=== PATIENT | male | born 1960 | race Caucasian/White ===

== ENCOUNTER 2018-12-30 20:54 | Emergency (ER) | payer OTHER ==
[~2018-12-30] VITALS: Ht 165.1 cm; Wt 113.4 kg
--- NOTE | 2018-12-30 21:04 | ED.ADGEN ---
Past History Past Medical History: A-Fib, Hypertension Adult General Chief Complaint Chief Complaint ..".. My afib. is kicking up...they took away my Cardizem 120 because I did not take it every day... and now I am getting Afib..... and dyspnea... when it gets to going really fast... I ve had it 10 yrs.. 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 Hx. Afib x 10yrs. The patient recently has been off his Cardizem because he was taking it only intermittently and [facility] did not renew this med. Patient does have history of mild hypertension. Patient does not smoke. No history of previous [place]. Patient has been compliant with his anti coagulants Eliquis. Patient denies any chest pain. No specific ill contacts. No immunosuppression. Review of Systems Review of Systems Constitutional: Denies fever or chills [] Eyes: Denies change in visual acuity, redness, or eye pain [] HENT: Denies nasal congestion or sore throat [] Respiratory: History of shortness of breath when he becomes tachycardic Cardiovascular: No additional information not addressed in HPI [] GI: Denies abdominal pain, nausea, vomiting, bloody stools or diarrhea [] : Denies dysuria or hematuria [] Musculoskeletal: Denies back pain or joint pain [] Integument: Denies rash or skin lesions [] Neurologic: Denies headache, focal weakness or sensory changes [] Endocrine: Denies polyuria or polydipsia [] All other systems were reviewed and found to be within normal limits, except as documented in this note. Family History Family History Noncontributory Current Medications Current Medications Current Medications Medications (Trade) Dose Ordered Sig/Otf Start Time Stop Time Status Last Admin Dose Admin Aspirin (Bubba Aspirin) 325 mg 1X ONCE 12/30/18 22:00 12/30/18 22:02 DC 12/30/18 21:16 325 MG Diltiazem HCl (Cardizem 24hr Cd) 120 mg 1X ONCE 12/30/18 22:00 12/30/18 22:02 DC 12/30/18 22:15 120 MG Lactated Ringer's 1,000 ml @ 100 mls/hr Q10H 12/30/18 21:30 12/31/18 03:49 DC 12/30/18 21:16 100 MLS/HR Allergies Allergies Allergies Coded Allergies Type Severity Reaction Last Updated Verified doxycycline Allergy Severe 12/30/18 Yes Physical Exam Physical Exam Constitutional: no acute distress, non-toxic appearance. [] HENT: Normocephalic, atraumatic, bilateral external ears normal, oropharynx moist, no oral exudates, nose normal. [] Eyes: PERRLA, EOMI, conjunctiva normal, no discharge. [] Neck: Normal range of motion, no tenderness, supple, no stridor. [] Cardiovascular: Tachycardia irregular rate and rhythm , no murmur [] Lungs & Thorax: Bilateral breath sounds with apex on auscultation [] Abdomen: Bowel sounds normal, soft, no tenderness, no masses, no pulsatile masses. Obese. Skin: Warm, dry, no erythema, no rash. [] Back: No tenderness, no CVA tenderness. [] Extremities: No tenderness, no cyanosis, no clubbing, ROM intact, no edema. [] No cording appreciated Neurologic: Alert and oriented X 3, normal motor function, normal sensory function, no focal deficits noted. [] Psychologic: Affect anxious, judgement normal, mood normal. [] Current Patient Data Vital Signs Vital Signs Date Time Temp Pulse Resp B/P (MAP) Pulse Ox O2 Delivery O2 Flow Rate FiO2 12/30/18 22:45 88 20 144/63 (90) 95 Room Air 12/30/18 21:05 98.4 Lab Results Laboratory Tests Test 12/30/18 21:09 White Blood Count 9.0 x10^3/uL (4.0-11.0) Red Blood Count 5.09 x10^6/uL (4.30-5.70) Hemoglobin 15.2 g/dL (13.0-17.5) Hematocrit 45.4 % (39.0-53.0) Mean Corpuscular Volume 89 fL (79-100) Mean Corpuscular Hemoglobin 30 pg (25-35) Mean Corpuscular Hemoglobin Concent 34 g/dL (31-37) Red Cell Distribution Width 12.8 % (11.5-14.5) Platelet Count 299 x10^3/uL (140-400) Neutrophils (%) (Auto) 57 % (31-73) Lymphocytes (%) (Auto) 31 % (24-48) Monocytes (%) (Auto) 7 % (0-9) Eosinophils (%) (Auto) 4 % (0-3) H Basophils (%) (Auto) 1 % (0-3) Neutrophils # (Auto) 5.1 x10^3uL (1.8-7.7) Lymphocytes # (Auto) 2.8 x10^3/uL (1.0-4.8) Monocytes # (Auto) 0.7 x10^3/uL (0.0-1.1) Eosinophils # (Auto) 0.4 x10^3/uL (0.0-0.7) Basophils # (Auto) 0.1 x10^3/uL (0.0-0.2) Prothrombin Time 10.0 SEC (9.4-11.4) Prothrombin Time INR 1.0 (0.9-1.1) PTT 28 SEC (23-33) D-Dimer (Estelle) 0.30 mg/L (0.00-0.50) Urine Collection Type Unknown Urine Color Straw Urine Clarity Clear Urine pH 7.0 Urine Specific [place] 1.010 Urine Protein Neg (NEG-TRACE) Urine Glucose (UA) Neg mg/dL (NEG) Urine Ketones (Stick) Neg mg/dL (NEG) Urine Blood Neg (NEG) Urine Nitrite Neg (NEG) Urine Bilirubin Neg (NEG) Urine Urobilinogen Dipstick 0.2 mg/dL (0.2 mg/dL) Urine Leukocyte Esterase Neg (NEG) Urine RBC 0 /HPF (0-2) Urine WBC 0 /HPF (0-4) Urine Squamous Epithelial Cells Occ /LPF Urine Bacteria 0 /HPF (0-FEW) Sodium Level 141 mmol/L (136-145) Potassium Level 3.8 mmol/L (3.5-5.1) Chloride Level 101 mmol/L (98-107) Carbon Dioxide Level 29 mmol/L (21-32) Anion Gap 11 (6-14) Blood Urea Nitrogen 19 mg/dL (8-26) Creatinine 0.8 mg/dL (0.7-1.3) Estimated GFR (Cockcroft-Gault) 99.6 Glucose Level 95 mg/dL (70-99) Calcium Level 8.6 mg/dL (8.5-10.1) Magnesium Level 1.9 mg/dL (1.8-2.4) Total Bilirubin 0.3 mg/dL (0.2-1.0) Direct Bilirubin 0.1 mg/dL (0.0-0.2) Aspartate Amino Transferase (AST) 20 U/L (15-37) Alanine Aminotransferase (ALT) 29 U/L (16-63) Alkaline Phosphatase 60 U/L (46-116) Creatine Kinase 127 U/L (39-308) Troponin I Quantitative < 0.017 ng/mL (0-0.055) HH-Ykn-H-Type Natriuretic Peptide 104 pg/mL (0-124) Total Protein 7.9 g/dL (6.4-8.2) Albumin 3.6 g/dL (3.4-5.0) Lipase 210 U/L (73-393) Urine Opiates Screen Neg (NEG) Urine Methadone Screen Neg (NEG) Urine Barbiturates Neg (NEG) Urine Phencyclidine Screen Neg (NEG) Urine Amphetamine/Methamphetamine Neg (NEG) Urine Benzodiazepines Screen Neg (NEG) Urine Cocaine Screen Neg (NEG) Urine Cannabinoids Screen Neg (NEG) Urine Ethyl Alcohol Neg (NEG) EKG EKG My interpretation of EKG shows A. fib with ventricular rate of 102. No findings acute STEMI with contralateral changes.[] Radiology/Procedures Radiology/Procedures 920 chest x-ray shows no acute cardiopulmonary findings.[] Course & Med Decision Making Course & Med Decision Making Pertinent Labs and Imaging studies reviewed. (See chart for details) Patient to resume his Cardizem 120 CD at night daily. Patient to continue his Eliquis 5 mg twice a day. Patient return if any concerns. Must follow-up primary care. Patient's ventricular response after receiving Cardizem and fluids in the emergency department had slowed to the 70 range patient without symptoms. Patient requesting discharge. Patient declined further evaluation at time of discharge. Note there is a computer -printer pharmacy air will not allow prescription for 120 Cardizem change mainly on Rx. from 180 to 120. Pharmacy notified of computer problems. [] Final Impression Final Impression 1. Afib- with rapid Ventricular Response 2. HTN Dragon Disclaimer Dragon Disclaimer This electronic medical record was generated, in whole or in part, using a voice recognition dictation system. Dragon Disclaimer This chart was dictated in whole or in part using Voice Recognition software in a busy, high-work load, and often noisy Emergency Department environment. It may contain unintended and wholly unrecognized errors or omissions. Discharge Summary Visit Information Final Diagnosis Problems Medical Problems: (1) Afib Status: Acute (2) Hypertension Status: Acute Brief Hospital Course Allergies Allergies Coded Allergies Type Severity Reaction Last Updated Verified doxycycline Allergy Severe 12/30/18 Yes Vital Signs Vital Signs Date Time Temp Pulse Resp B/P (MAP) Pulse Ox O2 Delivery O2 Flow Rate FiO2 12/30/18 22:45 88 20 144/63 (90) 95 Room Air 12/30/18 21:05 98.4 Lab Results Laboratory Tests Test 12/30/18 21:09 White Blood Count 9.0 x10^3/uL (4.0-11.0) Red Blood Count 5.09 x10^6/uL (4.30-5.70) Hemoglobin 15.2 g/dL (13.0-17.5) Hematocrit 45.4 % (39.0-53.0) Mean Corpuscular Volume 89 fL (79-100) Mean Corpuscular Hemoglobin 30 pg (25-35) Mean Corpuscular Hemoglobin Concent 34 g/dL (31-37) Red Cell Distribution Width 12.8 % (11.5-14.5) Platelet Count 299 x10^3/uL (140-400) Neutrophils (%) (Auto) 57 % (31-73) Lymphocytes (%) (Auto) 31 % (24-48) Monocytes (%) (Auto) 7 % (0-9) Eosinophils (%) (Auto) 4 % (0-3) Basophils (%) (Auto) 1 % (0-3) Neutrophils # (Auto) 5.1 x10^3uL (1.8-7.7) Lymphocytes # (Auto) 2.8 x10^3/uL (1.0-4.8) Monocytes # (Auto) 0.7 x10^3/uL (0.0-1.1) Eosinophils # (Auto) 0.4 x10^3/uL (0.0-0.7) Basophils # (Auto) 0.1 x10^3/uL (0.0-0.2) Prothrombin Time 10.0 SEC (9.4-11.4) Prothromb Time International Ratio 1.0 (0.9-1.1) Activated Partial Thromboplast Time 28 SEC (23-33) D-Dimer (Estelle) 0.30 mg/L (0.00-0.50) Urine Collection Type Unknown Urine Color Straw Urine Clarity Clear Urine pH 7.0 Urine Specific [place] 1.010 Urine Protein Neg (NEG-TRACE) Urine Glucose (UA) Neg mg/dL (NEG) Urine Ketones (Stick) Neg mg/dL (NEG) Urine Blood Neg (NEG) Urine Nitrite Neg (NEG) Urine Bilirubin Neg (NEG) Urine Urobilinogen Dipstick 0.2 mg/dL (0.2 mg/dL) Urine Leukocyte Esterase Neg (NEG) Urine RBC 0 /HPF (0-2) Urine WBC 0 /HPF (0-4) Urine Squamous Epithelial Cells Occ /LPF Urine Bacteria 0 /HPF (0-FEW) Sodium Level 141 mmol/L (136-145) Potassium Level 3.8 mmol/L (3.5-5.1) Chloride Level 101 mmol/L (98-107) Carbon Dioxide Level 29 mmol/L (21-32) Anion Gap 11 (6-14) Blood Urea Nitrogen 19 mg/dL (8-26) Creatinine 0.8 mg/dL (0.7-1.3) Estimated GFR (Cockcroft-Gault) 99.6 Glucose Level 95 mg/dL (70-99) Calcium Level 8.6 mg/dL (8.5-10.1) Magnesium Level 1.9 mg/dL (1.8-2.4) Total Bilirubin 0.3 mg/dL (0.2-1.0) Direct Bilirubin 0.1 mg/dL (0.0-0.2) Aspartate Amino Transf (AST/SGOT) 20 U/L (15-37) Alanine Aminotransferase (ALT/SGPT) 29 U/L (16-63) Alkaline Phosphatase 60 U/L (46-116) Creatine Kinase 127 U/L (39-308) Troponin I Quantitative < 0.017 ng/mL (0-0.055) YW-Wkp-M-Type Natriuretic Peptide 104 pg/mL (0-124) Total Protein 7.9 g/dL (6.4-8.2) Albumin 3.6 g/dL (3.4-5.0) Lipase 210 U/L (73-393) Urine Opiates Screen Neg (NEG) Urine Methadone Screen Neg (NEG) Urine Barbiturates Neg (NEG) Urine Phencyclidine Screen Neg (NEG) Urine Amphetamine/Methamphetamine Neg (NEG) Urine Benzodiazepines Screen Neg (NEG) Urine Cocaine Screen Neg (NEG) Urine Cannabinoids Screen Neg (NEG) Urine Ethyl Alcohol Neg (NEG) Brief Hospital Course Mr. Abreu is a 58 old male who presented with chronic Afib x 10 yrs. Requesting refill of Cardizem 120-CD. Discharge Information Condition at Discharge: Improved, Stable Disposition/Orders: D/C to Home Dischare Medications Current Medications Aspirin (Bubba Aspirin) 325 mg 1X ONCE PO Last administered on 12/30/18at 21:16 ; Admin Dose 325 MG; Start 12/30/18 at 22:00; Stop 12/30/18 at 22:02; Status DC Lactated Ringer's 1,000 ml @ 100 mls/hr Q10H IV Last administered on 12/30/18at 21:16; Admin Dose 100 MLS/HR; Start 12/30/18 at 21:30; Stop 12/31/18 at 03:49; Status DC Diltiazem HCl (Cardizem 24hr Cd) 120 mg 1X ONCE PO Last administered on at 22:15; Admin Dose 120 MG; Start 12/30/18 at 22:00; Stop 12/30/18 at 22:02; Status DC Active Scripts Active Eliquis (Apixaban) 5 Mg Tablet 5 Mg PO BID 90 Days Cardizem Cd (Diltiazem Hcl) 180 Mg Cap.er.24h 1 Cap PO DAILY Discharge Summary Visit Information Final Diagnosis Problems Medical Problems: (1) Afib Status: Acute (2) Hypertension Status: Acute Brief Hospital Course Allergies Allergies Coded Allergies Type Severity Reaction Last Updated Verified doxycycline Allergy Severe 12/30/18 Yes Vital Signs Vital Signs Date Time Temp Pulse Resp B/P (MAP) Pulse Ox O2 Delivery O2 Flow Rate FiO2 12/30/18 22:45 88 20 144/63 (90) 95 Room Air 12/30/18 21:05 98.4 Lab Results Laboratory Tests Test 12/30/18 21:09 White Blood Count 9.0 x10^3/uL (4.0-11.0) Red Blood Count 5.09 x10^6/uL (4.30-5.70) Hemoglobin 15.2 g/dL (13.0-17.5) Hematocrit 45.4 % (39.0-53.0) Mean Corpuscular Volume 89 fL (79-100) Mean Corpuscular Hemoglobin 30 pg (25-35) Mean Corpuscular Hemoglobin Concent 34 g/dL (31-37) Red Cell Distribution Width 12.8 % (11.5-14.5) Platelet Count 299 x10^3/uL (140-400) Neutrophils (%) (Auto) 57 % (31-73) Lymphocytes (%) (Auto) 31 % (24-48) Monocytes (%) (Auto) 7 % (0-9) Eosinophils (%) (Auto) 4 % (0-3) Basophils (%) (Auto) 1 % (0-3) Neutrophils # (Auto) 5.1 x10^3uL (1.8-7.7) Lymphocytes # (Auto) 2.8 x10^3/uL (1.0-4.8) Monocytes # (Auto) 0.7 x10^3/uL (0.0-1.1) Eosinophils # (Auto) 0.4 x10^3/uL (0.0-0.7) Basophils # (Auto) 0.1 x10^3/uL (0.0-0.2) Prothrombin Time 10.0 SEC (9.4-11.4) Prothromb Time International Ratio 1.0 (0.9-1.1) Activated Partial Thromboplast Time 28 SEC (23-33) D-Dimer (Estelle) 0.30 mg/L (0.00-0.50) Urine Collection Type Unknown Urine Color Straw Urine Clarity Clear Urine pH 7.0 Urine Specific [place] 1.010 Urine Protein Neg (NEG-TRACE) Urine Glucose (UA) Neg mg/dL (NEG) Urine Ketones (Stick) Neg mg/dL (NEG) Urine Blood Neg (NEG) Urine Nitrite Neg (NEG) Urine Bilirubin Neg (NEG) Urine Urobilinogen Dipstick 0.2 mg/dL (0.2 mg/dL) Urine Leukocyte Esterase Neg (NEG) Urine RBC 0 /HPF (0-2) Urine WBC 0 /HPF (0-4) Urine Squamous Epithelial Cells Occ /LPF Urine Bacteria 0 /HPF (0-FEW) Sodium Level 141 mmol/L (136-145) Potassium Level 3.8 mmol/L (3.5-5.1) Chloride Level 101 mmol/L (98-107) Carbon Dioxide Level 29 mmol/L (21-32) Anion Gap 11 (6-14) Blood Urea Nitrogen 19 mg/dL (8-26) Creatinine 0.8 mg/dL (0.7-1.3) Estimated GFR (Cockcroft-Gault) 99.6 Glucose Level 95 mg/dL (70-99) Calcium Level 8.6 mg/dL (8.5-10.1) Magnesium Level 1.9 mg/dL (1.8-2.4) Total Bilirubin 0.3 mg/dL (0.2-1.0) Direct Bilirubin 0.1 mg/dL (0.0-0.2) Aspartate Amino Transf (AST/SGOT) 20 U/L (15-37) Alanine Aminotransferase (ALT/SGPT) 29 U/L (16-63) Alkaline Phosphatase 60 U/L (46-116) Creatine Kinase 127 U/L (39-308) Troponin I Quantitative < 0.017 ng/mL (0-0.055) XJ-Liq-P-Type Natriuretic Peptide 104 pg/mL (0-124) Total Protein 7.9 g/dL (6.4-8.2) Albumin 3.6 g/dL (3.4-5.0) Lipase 210 U/L (73-393) Urine Opiates Screen Neg (NEG) Urine Methadone Screen Neg (NEG) Urine Barbiturates Neg (NEG) Urine Phencyclidine Screen Neg (NEG) Urine Amphetamine/Methamphetamine Neg (NEG) Urine Benzodiazepines Screen Neg (NEG) Urine Cocaine Screen Neg (NEG) Urine Cannabinoids Screen Neg (NEG) Urine Ethyl Alcohol Neg (NEG) Brief Hospital Course Mr. Abreu is a 58 old [sex] who presented with [ ] Discharge Information Dischare Medications Current Medications Aspirin (Bubba Aspirin) 325 mg 1X ONCE PO Last administered on 12/30/18at 21:16 ; Admin Dose 325 MG; Start 12/30/18 at 22:00; Stop 12/30/18 at 22:02; Status DC Lactated Ringer's 1,000 ml @ 100 mls/hr Q10H IV Last administered on 12/30/18at 21:16; Admin Dose 100 MLS/HR; Start 12/30/18 at 21:30; Stop 12/31/18 at 03:49; Status DC Diltiazem HCl (Cardizem 24hr Cd) 120 mg 1X ONCE PO Last administered on at 22:15; Admin Dose 120 MG; Start 12/30/18 at 22:00; Stop 12/30/18 at 22:02; Status DC Active Scripts Active Eliquis (Apixaban) 5 Mg Tablet 5 Mg PO BID 90 Days Cardizem Cd (Diltiazem Hcl) 180 Mg Cap.er.24h 1 Cap PO DAILY IRAM LEAVITT MD Dec 30, 2018 21:04
[2018-12-30] MEDS ORDERED: IV RINGERS SOLUTION,LACTATED 1,000 ML IV SCH (21:30)
[2018-12-30 21:38] LABS: BASO # 0.1 x10^3/uL (0.0-0.2); BASO % 1 % (0-3); EOS # 0.4 x10^3/uL (0.0-0.7); EOS % 4 % (0-3); HEMATOCRIT 45.4 % (39.0-53.0); HEMOGLOBIN 15.2 g/dL (13.0-17.5); LYMPH # 2.8 x10^3/uL (1.0-4.8); LYMPH % 31 % (24-48); MEAN CORPUSCULAR HEMOGLOBIN 30 pg (25-35); MEAN CORPUSCULAR HGB CONC 34 g/dL (31-37); MEAN CORPUSCULAR VOLUME 89 fL (79-100); MONO # 0.7 x10^3/uL (0.0-1.1); MONO % 7 % (0-9); NEUT # 5.1 x10^3uL (1.8-7.7); NEUT % 57 % (31-73); PLATELET COUNT 299 x10^3/uL (140-400); RED BLOOD COUNT 5.09 x10^6/uL (4.30-5.70); RED CELL DISTRIBUTION WIDTH 12.8 % (11.5-14.5)
[2018-12-30 21:41] LABS: BARBITURATES NEG (NEG); BENZODIAZEPINES NEG (NEG); CANNABINOIDS NEG (NEG); COCAINE NEG (NEG); METHADONE NEG (NEG); OPIATES NEG (NEG); PHENCYCLIDINE NEG (NEG)
[2018-12-30 21:42] LABS: AMPHETAMINE/METHAMPHETAMINE NEG (NEG)
[2018-12-30] MEDS ORDERED: APIX5TAB3 PO (21:42)
[2018-12-30] MEDS ORDERED: DILT180C2 PO (21:42)
[2018-12-30 21:43] LABS: BACTERIA,URINE 0 /HPF (0-FEW); BILIRUBIN,URINE NEG (NEG); CLARITY,URINE CLEAR; COLOR,URINE STRAW; GLUCOSE,URINE NEG (NEG); NITRITE,URINE NEG (NEG); RBC,URINE 0 /HPF (0-2); SQUAMOUS EPITHELIAL CELL,UR OCC /LPF; UROBILINOGEN,URINE 0.2 mg/dL (0.2 mg/dL); WBC,URINE 0 /HPF (0-4)
[2018-12-30 21:55] LABS: ALBUMIN 3.6 g/dL (3.4-5.0); CALCIUM 8.6 mg/dL (8.5-10.1); CREATININE 0.8 mg/dL (0.7-1.3); DIRECT BILIRUBIN 0.1 mg/dL (0.0-0.2); GFR 99.6; MAGNESIUM 1.9 mg/dL (1.8-2.4); POTASSIUM 3.8 mmol/L (3.5-5.1); TOTAL BILIRUBIN 0.3 mg/dL (0.2-1.0); TOTAL PROTEIN 7.9 g/dL (6.4-8.2)
[2018-12-30] MEDS ORDERED: ASPIRIN 325 MG TABLET PO ONE (22:00)
--- NOTE | 2018-12-30 22:02 | RAD ---
CHEST PA LATERAL Technique: PA and lateral views of the chest were obtained. Clinical History: Chest pain, irregular sanders beat. Hx AFIB Comparison: None. Findings: The heart and pulmonary vasculature appear within normal limits. The lungs are clear. The pleural margins are clear. Impression: No acute chest process is seen. Electronically signed by: Geovani Butcher III, MD (12/30/2018 9:58 PM) [facility]
[2018-12-30 22:45] VITALS: BP 144/63
--- NOTE | 2018-12-31 06:12 | EKG ---
[address] [address] Test Date: 2018-12-30 Test Time: 21:06:22 Pat Name: SHAHEED WALKER Department: Room: Gender: M [place] Farmer: [id number] : 1960 Requested By: IRAM LEAVITT Order Number: [id number] Reading MD: Alfredo Jones Measurements Intervals [place] Rate: 102 P: [place]: QRS: 21 QRSD: 86 T: 34 QT: 354 QTc: 466 Interpretive Statements ATRIAL FIBRILLATION. 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
[2018-12-31 13:07] LABS: THYROID STIM HORMONE (TSH) 3.236 uIU/mL (0.358-3.740)
== END 2018-12-30 22:58 | disposition home or self-care (01) ==
LOC: ER 20:54
DX: I48.2 Chronic atrial fibrillation (principal); I10 Essential (primary) hypertension; Z88.1 Allergy status to other antibiotic agents
CPT/HCPCS: 36415; 71046; 80048; 80061; 80076; 80307; 81001; 82550; 83690; 83735; 83880; 84443; 84484; 85025; 85379; 85610; 85730; 93005; 99284; J7120

== ENCOUNTER 2019-02-05 18:34 | Inpatient (IN) | payer OTHER ==
[~2019-02-05] VITALS: Ht 167.6 cm; Wt 118.8 kg
[~2019-02-05 18:34] MED LIST: APIX5TAB3 PO; DILT180C2 PO
--- NOTE | 2019-02-05 18:58 | PHYS DOC ---
Past History Past Medical History: A-Fib, Hypertension Past Surgical History: No Surgical History Alcohol Use: None Drug Use: None Adult General Chief Complaint Chief Complaint: CHEST PAIN HPI HPI Patient is a 58-year-old male who presents with complaint of palpitations started about an hour ago. He states that since that time he has also had some chest discomfort that he describes as pressure. He states that currently symptoms are very mild but he states that they do get worse when he gets up and moves around. He denies any shortness of breath. He denies any nausea, vomiting or diaphoresis. Patient states that he does have a history of chronic A. fib and is on Eliquis for it. Review of Systems Review of Systems Constitutional: Denies fever or chills [] Cardiovascular: No additional information not addressed in HPI [] GI: Denies abdominal pain, nausea, vomiting, bloody stools or diarrhea [] Integument: Denies rash or skin lesions [] Neurologic: Denies headache, focal weakness or sensory changes [] All other systems were reviewed and found to be within normal limits, except as documented in this note. Current Medications Current Medications Current Medications Medications (Trade) Dose Ordered Sig/Otf Start Time Stop Time Status Last Admin Dose Admin Diltiazem HCl (Cardizem Iv Push) 20 mg 1X ONCE 02/05/19 19:00 02/05/19 19:01 Sodium Chloride 1,000 ml @ 1,000 mls/hr Q1H 02/05/19 19:00 02/05/19 19:59 Allergies Allergies Allergies Coded Allergies Type Severity Reaction Last Updated Verified doxycycline Allergy Severe 12/30/18 Yes Physical Exam Physical Exam Constitutional: Well developed, well nourished, no acute distress, non-toxic appearance. [] HENT: Normocephalic, atraumatic, bilateral external ears normal, oropharynx moist, no oral exudates, nose normal. [] Eyes: PERRLA, EOMI, conjunctiva normal, no discharge. [] Neck: Normal range of motion, no tenderness, supple, no stridor. [] Cardiovascular: Markedly tachycardic rate with irregular rhythm [] Lungs & Thorax: Bilateral breath sounds clear to auscultation [] Abdomen: Bowel sounds normal, soft, no tenderness. [] Skin: Warm, dry, no erythema, no rash. [] Extremities: No tenderness, no cyanosis, no clubbing, ROM intact, no edema. [] Neurologic: Alert and oriented X 3, no focal deficits noted. [] Current Patient Data Vital Signs Vital Signs Date Time Temp Pulse Resp B/P (MAP) Pulse Ox O2 Delivery O2 Flow Rate FiO2 02/05/19 18:47 98.2 133 18 95 Room Air EKG EKG EKG demonstrates atrial fibrillation with rapid ventricular response and rate of 130.[] Radiology/Procedures Radiology/Procedures [] Impressions: Chest x-ray demonstrates no acute process. Course & Med Decision Making Course & Med Decision Making Pertinent Labs and Imaging studies reviewed. (See chart for details) [] Dragon Disclaimer Dragon Disclaimer This electronic medical record was generated, in whole or in part, using a voice recognition dictation system. Departure Departure: Impression: Primary Impression: Atrial fibrillation with RVR Additional Impression: Chest pain Disposition: ADMITTED INPATIENT Admitting Physician: Anna Hernandez Condition: IMPROVED Referrals: PCP,NO (PCP) Problem Qualifiers Additional Impression: Chest pain Chest pain type: unspecified Qualified Codes: R07.9 - Chest pain, unspecified DAVE CROFT Jr. DO Feb 05, 2019 18:58
[2019-02-05] MEDS ORDERED: dilTIAZem 25 MG/5 ML VIAL IVP ONE (19:00)
[2019-02-05] MEDS ORDERED: IV NORMAL SALINE 1,000ML 1,000 ML IV SCH (19:00)
[2019-02-05 19:25] LABS: BASO # 0.1 x10^3/uL (0.0-0.2); BASO % 1 % (0-3); EOS # 0.4 x10^3/uL (0.0-0.7); EOS % 4 % (0-3); HEMATOCRIT 44.4 % (39.0-53.0); HEMOGLOBIN 15.2 g/dL (13.0-17.5); LYMPH # 2.3 x10^3/uL (1.0-4.8); LYMPH % 25 % (24-48); MEAN CORPUSCULAR HEMOGLOBIN 31 pg (25-35); MEAN CORPUSCULAR HGB CONC 34 g/dL (31-37); MEAN CORPUSCULAR VOLUME 89 fL (79-100); MONO # 0.8 x10^3/uL (0.0-1.1); MONO % 9 % (0-9); NEUT # 5.5 x10^3uL (1.8-7.7); NEUT % 61 % (31-73); PLATELET COUNT 288 x10^3/uL (140-400); RED BLOOD COUNT 4.97 x10^6/uL (4.30-5.70); RED CELL DISTRIBUTION WIDTH 13.1 % (11.5-14.5)
[2019-02-05 19:42] LABS: ALBUMIN 3.5 g/dL (3.4-5.0); ALBUMIN/GLOBULIN RATIO 0.9 (1.0-1.7); CALCIUM 8.7 mg/dL (8.5-10.1); MAGNESIUM 2.1 mg/dL (1.8-2.4); POTASSIUM 3.7 mmol/L (3.5-5.1); TOTAL BILIRUBIN 0.3 mg/dL (0.2-1.0); TOTAL PROTEIN 7.6 g/dL (6.4-8.2)
[2019-02-05] MEDS ORDERED: NITROGLYCERIN SUBLINGUAL 0.4 MG BOTTLE OF 25. SL PRN (20:45)
[2019-02-05] MEDS: dilTIAZem VIAL 125 MG in IV DEXTROSE 5% 100 ML IV PRN (21:47)
[2019-02-05 23:38] VITALS: BP 102/73
[2019-02-05 23:54] VITALS: BP 104/63
[2019-02-06] VITALS (34 sets, daily range): BP systolic 82–150; BP diastolic 55–102
[2019-02-06] MEDS ORDERED: DRON400T PO (02:09)
[2019-02-06] MEDS ORDERED: METO50TA6 PO (02:19)
[2019-02-06] MEDS ORDERED: MAGN400T30 PO (02:19)
[2019-02-06] MEDS ORDERED: ATOR10TA60 PO (02:19)
[2019-02-06] MEDS: dilTIAZem VIAL 125 MG in IV DEXTROSE 5% 100 ML IV PRN (06:30)
--- NOTE | 2019-02-06 06:38 | RAD ---
PROCEDURE: PORTABLE CHEST 1V CLINICAL INDICATION: afib COMPARISON: None FINDINGS: No pneumothorax identified. Cardiac and mediastinal contours unremarkable. No pulmonary consolidation or acute airspace disease. No acute osseous abnormalities identified. IMPRESSION: No pulmonary consolidation or acute airspace disease. Electronically signed by: Luiz Richmond DO (02/06/2019 6:35 AM) [facility]
--- NOTE | 2019-02-06 09:55 | PDOC2 ---
LEONILA DOTY PHYSICAL THERAPIST CLINIC DIRECTOR 02/06/19 0955: CONSULT Date of Admission DATE: 02/06/19 TIME: 09:25 Reason for Consult: dyspnea, chest pain Problem List Problems Medical Problems: (1) Atrial fibrillation with RVR Status: Acute (2) Chest pain Status: Acute History of Present Illness Mr Abreu is a 58 year old male who was recently released from Jail and residing in the [facility]. He reports a history of atrial fibrillation, hypertension and hyperlipidemia. Yesterday he reports he was upset after arguing with his girlfriend and then was sent some upsetting social media. He had a sudden onset of rapid heart rate with associated chest pressure. He denies lightheadedness or dyspnea exceeding his baseline due to COPD. He then sought ED evaluation. He reports that his atrial fibrillation is normally fairly well controlled with breakthrough only once or twice per year. He does state that over the last few months this has occurred more often than usual. He denies other episodes of chest discomfort. He reports chronic dyspnea due to his COPD but denies any recent exacerbations. He denies congestive symptoms, lightheadedness, presyncope or syncope. He denies functional limitations. Cardiovascular: AFIB, HTN, hyperipidemia Pulmonary: COPD, Other (OAS) GI: GERD Renal/: Other (urinary retention, prob BPH by history) Past Surgical History no surgeries Family History father - onset in his 50s, CAD, HTN, alcoholism Social History prior history of methamphetamine use, last in 2011, prior smoking last in 2011, no significant ETOH, resides in [facility]. Current Medications Current Medications Diltiazem HCl (Cardizem Iv Push) 20 mg 1X ONCE IVP Last administered on at 19:01; Start 02/05/19 at 19:00; Stop 02/05/19 at 19:01; Status DC Sodium Chloride 1,000 ml @ 1,000 mls/hr Q1H IV Last administered on 02/05/19at 19:01; Start 02/05/19 at 19:00; Stop 02/05/19 at 19:59; Status DC Nitroglycerin (Nitrostat) 0.4 mg PRN Q5MIN PRN SL CHEST PAIN; Start 02/05/19 at 20:45; Stop 02/06/19 at 20:44 Diltiazem HCl 125 mg/Dextrose 125 ml @ 5 mls/hr CONT PRN IV SEE I/O RECORD Last administered on 02/05/19at 21:47; Start 02/05/19 at 21:15 Active Scripts Active Eliquis (Apixaban) 5 Mg Tablet 5 Mg PO BID 90 Days Cardizem Cd (Diltiazem Hcl) 180 Mg Cap.er.24h 1 Cap PO DAILY Reported Atorvastatin Calcium 10 Mg Tablet 1 Tab PO DAILY Magnesium (Magnesium Oxide) 400 Mg Tablet 200 Mg PO BID Metoprolol Tartrate 50 Mg Tablet 1 Tab PO BID Multaq (Dronedarone Hcl) 400 Mg Tablet 200 Mg PO BID Allergies: Coded Allergies: doxycycline (Verified Allergy, Severe, 02/06/19) Pt states "my skin breaks out into red itchy patches - not hives." Review of System as per HPI General: Alert, Oriented X3, Cooperative, No acute distress HEENT: Atraumatic, EOMI, Mucous membr. moist/pink Lungs: Clear to auscultation, Normal air movement Heart: Other (IRR, no gallops, clicks or rubs, no obvious murmurs) Abdomen: Normal bowel sounds, Soft, No tenderness, Other (obese) Extremities: No cyanosis, No edema, Normal pulses Neuro: Normal speech, Strength at 5/5 X4 ext Psych/Mental Status: Mental status NL, Mood NL VITALS Vital Signs Date Time Temp Pulse Resp B/P (MAP) Pulse Ox O2 Delivery O2 Flow Rate FiO2 02/06/19 08:00 Room Air 02/06/19 07:42 98.3 02/06/19 06:13 116/66 (83) 02/06/19 05:37 77 13 97 1.0 Labs Laboratory Tests Test 02/05/19 18:56 02/05/19 23:30 02/06/19 02:40 White Blood Count 9.0 x10^3/uL (4.0-11.0) Red Blood Count 4.97 x10^6/uL (4.30-5.70) Hemoglobin 15.2 g/dL (13.0-17.5) Hematocrit 44.4 % (39.0-53.0) Mean Corpuscular Volume 89 fL (79-100) Mean Corpuscular Hemoglobin 31 pg (25-35) Mean Corpuscular Hemoglobin Concent 34 g/dL (31-37) Red Cell Distribution Width 13.1 % (11.5-14.5) Platelet Count 288 x10^3/uL (140-400) Neutrophils (%) (Auto) 61 % (31-73) Lymphocytes (%) (Auto) 25 % (24-48) Monocytes (%) (Auto) 9 % (0-9) Eosinophils (%) (Auto) 4 % (0-3) Basophils (%) (Auto) 1 % (0-3) Neutrophils # (Auto) 5.5 x10^3uL (1.8-7.7) Lymphocytes # (Auto) 2.3 x10^3/uL (1.0-4.8) Monocytes # (Auto) 0.8 x10^3/uL (0.0-1.1) Eosinophils # (Auto) 0.4 x10^3/uL (0.0-0.7) Basophils # (Auto) 0.1 x10^3/uL (0.0-0.2) Sodium Level 141 mmol/L (136-145) Potassium Level 3.7 mmol/L (3.5-5.1) Chloride Level 103 mmol/L (98-107) Carbon Dioxide Level 29 mmol/L (21-32) Anion Gap 9 (6-14) Blood Urea Nitrogen 18 mg/dL (8-26) Creatinine 1.0 mg/dL (0.7-1.3) Estimated GFR (Cockcroft-Gault) 77.0 BUN/Creatinine Ratio 18 (6-20) Glucose Level 121 mg/dL (70-99) Calcium Level 8.7 mg/dL (8.5-10.1) Magnesium Level 2.1 mg/dL (1.8-2.4) Total Bilirubin 0.3 mg/dL (0.2-1.0) Aspartate Amino Transf (AST/SGOT) 21 U/L (15-37) Alanine Aminotransferase (ALT/SGPT) 23 U/L (16-63) Alkaline Phosphatase 64 U/L (46-116) Troponin I Quantitative < 0.017 ng/mL (0-0.055) < 0.017 ng/mL (0-0.055) < 0.017 ng/mL (0-0.055) JE-Kve-N-Type Natriuretic Peptide 136 pg/mL (0-124) Total Protein 7.6 g/dL (6.4-8.2) Albumin 3.5 g/dL (3.4-5.0) Albumin/Globulin Ratio 0.9 (1.0-1.7) Images CXR - IMPRESSION: No pulmonary consolidation or acute airspace disease. Assessment/Plan 1. atrial fibrillation with RVR - rate controlled at rest on cardizem drip, remains tachycardic with minimal exertion. add digoxin and resume multaq, apixaban, and rate control Rx as bp tolerates. 2. Chest pain - mi ruled out. check echo, check lipids, resume rate control and antiarrhythmics. outpatient stress test. 3. hypertension - currently mildly hypotensive with cardizem drip. Resume home meds as pressure tolerates and titrate off cardizem drip 4. hyperlipidemia - check lipids, continue statin 5. obesity - weight reduction encouraged. titrate meds, check lipids, echo for LV function and atrial size, outpatient MPI. MARGUERITE FAM MD 02/06/19: CONSULT Assessment/Plan Patient seen and examined. Agree with above nurse practitioner note. 58-year-old man who was been struggling with atrial fibrillation for over 10 years. He's currently still on the [facility] presents custody and has been able to get medications through them. He is since admission been back in sinus rhythm. Denies any chest pain, dyspnea, orthopnea or PND. He reports admission to the hospital 6 times over the last 6 months at various locations. We will obtain a recent stress test and echocardiogram per his recollection from [facility] [place]. Supportive care for now. Continue anticoagulation. LEONILA DOTY APRN Feb 06, 2019 09:55 MARGUERITE FAM MD Feb 06, 2019 22:37
[2019-02-06] MEDS: METOPROLOL TART IMMED RELEASE 50 MG TABLET PO SCH ×2 (10:30→18:22)
[2019-02-06] MEDS ORDERED: DRONEDARONE HCL 400 MG TABLET PO SCH (10:30)
[2019-02-06] MEDS: APIXABAN 5 MG TABLET. PO SCH ×2 (11:11→21:31)
[2019-02-06] MEDS: MAGNESIUM OXIDE 400 MG TABLET PO SCH ×2 (11:12→21:31)
[2019-02-06] MEDS: ATORVASTATIN CALCIUM 10 MG TABLET. PO SCH (11:12)
[2019-02-06] MEDS: ASPIRIN ENTERIC COATED 81 MG TABLET.DR. PO SCH ×2 (11:12→12:02)
[2019-02-06] MEDS ORDERED: DIGOXIN IV 500 MCG/2 ML AMPUL. IV ONE (12:00)
--- NOTE | 2019-02-06 13:43 | HP ---
ADMIT DATE: 02/05/2019 HISTORY OF PRESENT ILLNESS: The patient is a 58-year-old male patient who is currently in a intermediate house, who apparently had an argument with his girlfriend and developed palpitation that started about an hour prior to arrival to the Emergency Room. He did also complain of mild chest discomfort that he describes as pressure. His symptoms get worse when he gets up and moves around. He denied any shortness of breath. Denied any nausea, vomiting, or diaphoresis. He is known to have chronic atrial fibrillation and he is on Eliquis for it. He was evaluated in the Emergency Room and was found to be in atrial fibrillation with rapid ventricular response with the heart rate of 130 was admitted to [facility] and currently consulted the Cardiology team to evaluate and to assist with his management. According to him, he has had about 6 episodes of atrial fibrillation with rapid ventricular response over the last 6 months since August 2018. He just moved recently from [place], [place] and before that he was in [place], [place]. He spent about a total of 9 years in halfway. PAST MEDICAL HISTORY: Significant for atrial fibrillation, hypertension, hyperlipidemia, chronic obstructive pulmonary disease. He has also had obstructive sleep apnea, on CPAP. PAST SURGICAL HISTORY: Significant for colonoscopy with 6 polypectomies. ALLERGIES: He is allergic to DOXYCYCLINE. MEDICATIONS: He is currently on following medications: He is on apixaban 5 mg twice a day, Multaq 200 mg twice a day, atorvastatin calcium 10 mg at bedtime, metoprolol tartrate 50 mg twice a day, diltiazem 180 mg daily, magnesium oxide 200 mg twice a day. FAMILY HISTORY: He has 1 brother younger, 1 sister younger, and 1 sister older. His brother has what seems to coronary artery disease and extensive calcification of his coronary arteries. His father at the age of 54 because of myocardial infarction. His mother at the age of 84 because, the cause of is not known to him. SOCIAL HISTORY: He is , has 3 sons. He quit smoking in 2011 as well as using drugs. He used to smoke 2 packs a day and smoked for 35 years. He also used to smoke methamphetamine daily for almost 15 years. He drinks alcohol occasionally. 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 REVIEW OF SYSTEMS: The patient denied any blurring of vision, cataract, glaucoma or macular degeneration. Denied any earache, tinnitus or sensorineural deafness. Denied any nosebleeds, stuffy nose or postnasal drip. Denied any sore throat, sore tongue, toothache, hoarseness of voice, or difficulty swallowing. Denied any nausea, vomiting, diarrhea or constipation. Denied any hematemesis, melena or hematochezia. Denied any dysuria, frequency or hematuria. He was started on tamsulosin for benign prostatic hypertrophy, but he did not like it. He is not using it. He did complain of chest tightness and chest pressure, but denied any shortness of breath. Denied any orthopnea or paroxysmal nocturnal dyspnea. Denied any cough, phlegm or hemoptysis. Denied any chills, rigors, or fever. Denied any dizziness, lightheadedness, or vertigo. PHYSICAL EXAMINATION: GENERAL: On arrival to the Emergency Room, he looked well and was clearly in no apparent respiratory distress. VITAL SIGNS: His heart rate was 133, blood pressure was 123/56, temperature was 98.2, respiratory rate was 18 and oxygen saturation was 95%. HEAD, EYES, EARS, NOSE, AND THROAT: Showed normocephalic, atraumatic. NECK: Supple. HEART: Showed normal first and second heart sounds with no gallop, rub or murmur. CHEST: Clear to auscultation. No crepitation or rhonchi. ABDOMEN: Distended, soft, nontender. NEUROLOGIC: He was awake, alert, responding appropriately. All cranial nerves intact. He is deaf in his left ear. Otherwise, he moves extremities without difficulty and ambulates without assistance or assistive devices. LABORATORY DATA: His lab work showed a serum sodium 141, potassium 3.7, chloride 103, bicarbonate 29, anion gap of 9, BUN 18, creatinine 1, estimated GFR was 77 mL per minute. His glucose was 121, calcium was 8.7, magnesium 2.1. Total bilirubin, AST, ALT, alkaline phosphatase were normal. His first troponin was less than 0.017. His total protein was 7.6, albumin 3.5. ASSESSMENT: In summary, this is a 58-year-old male patient who was admitted with atrial fibrillation with rapid ventricular response. He has also had chest pain. First set of cardiac enzyme and EKG showed no evidence of myocardial infarction. He has multiple other medical problems including, A. Hypertension. B. Hyperlipidemia. C. Chronic obstructive pulmonary disease. D. Morbid obesity and obstructive sleep apnea, on CPAP. We will do 2 more sets of cardiac enzymes. He was started on Cardizem drip. We will resume all his medications. We will consult the cardiology team and decide the further management according to his response. CARMELA MCGREGOR MD DR: ELVIS/chris JOB#: [id number] / [id number]
--- NOTE | 2019-02-06 17:31 | CARD ---
MR#: [id number] Date of Study: 02/06/2019 Ordering Physician: LEONILA DOTY, Referring Physician: CARMELA MCGREGOR Tech: Hilary Nuñez MAHOGANY APPROVED REPORT EXAM: Two-dimensional and M-mode echocardiogram with Doppler and color Doppler. Other Information Quality : Technically LimitedHR: 45bpm Rhythm : BradycardiaTechnically limited study due to body habitus and smoking. INDICATION Chest Pain 2D DIMENSIONS RVDd3.0 (2.9-3.5cm)Left Atrium(2D)3.7 (1.6-4.0cm) IVSd1.0 (0.7-1.1cm)Aortic Root(2D)3.3 (2.0-3.7cm) LVDd4.9 (3.9-5.9cm)LVOT Diameter2.0 (1.8-2.4cm) PWd1.0 (0.7-1.1cm)LVDs3.5 (2.5-4.0cm) FS (%) 29.7 %SV64.9 ml LVEF(%)56.5 (>50%) M-Mode DIMENSIONS Left Atrium(MM)4.08 (2.5-4.0cm)Aortic Root3.47 (2.2-3.7cm) Aortic Valve AoV Peak Remberto.149.3cm/sAoV VTI35.8cm AO Peak GR.8.9mmHgLVOT Peak Remberto.101.9cm/s LVOT VTI 24.01cmAO Mean GR.4mmHg LORIE (VMAX)2.03tj4TTO (VTI)2.19cm2 Mitral Valve MV E Guhoeygc529.0cm/sMV DECEL FMMZ125ui MV A Sjolvjqe25.4cm/sE/A Ratio1.8 MV A Dcuxnsel889ko Pulmonary Valve PV Peak Jyvgpytr422.2cm/sPV Peak Grad.4mmHg Tricuspid Valve TR P. Hdpegtrg959bj/sRAP DKMRKRKY0rrVa TR Peak Gr.79csTyOVNC46skFb LEFT VENTRICLE The left ventricle is normal size. There is normal left ventricular wall thickness. The left ventricu lar systolic function is normal. The Ejection Fraction is 55-60%. There is normal LV segmental wall m otion. Transmitral Doppler flow pattern is abnormal. RIGHT VENTRICLE The right ventricle is normal size. There is normal right ventricular wall thickness. The right ventr icular systolic function is normal. ATRIA The left atrium is mildly dilated. The right atrium is mildly dilated. The interatrial septum is inta ct with no evidence for an atrial septal defect or patent foramen ovale as noted on 2-D or Doppler im aging. AORTIC VALVE The aortic valve is not well visualized. The aortic valve is probably trileaflet. Doppler and Color F low revealed trace aortic regurgitation. There is no significant aortic valvular stenosis. MITRAL VALVE The mitral valve is normal in structure and function. There is no evidence of mitral valve prolapse. There is no mitral valve stenosis. Doppler and Color Flow revealed no mitral valve regurgitation note d. TRICUSPID VALVE The tricuspid valve is normal in structure and function. Doppler and Color Flow revealed trace to mil d tricuspid regurgitation. There is mild pulmonary hypertension. The PA pressure was estimated at 32 mmHg. There is no tricuspid valve prolapse or vegetation. There is no tricuspid valve stenosis. PULMONIC VALVE The pulmonic valve is not well visualized. GREAT VESSELS The aortic root is normal in size. The ascending aorta is normal in size. PERICARDIAL EFFUSION There is no evidence of significant pericardial effusion. Critical Notification Critical Value: No <Conclusion> The left ventricular systolic function is normal. The Ejection Fraction is 55-60%. There is normal LV segmental wall motion. Trace to mild tricuspid regurgitation. The PA pressure was estimated at 32 mmHg. There is no evidence of significant pericardial effusion. Signed by : Misael Cervantes, Electronically Approved : 02/06/2019 17:31:13
[2019-02-06] MEDS ORDERED: ATORVASTATIN CALCIUM 10 MG TABLET. PO SCH (21:00)
[2019-02-06] MEDS: DRONEDARONE HCL 400 MG TABLET PO SCH (21:30)
--- NOTE | 2019-02-06 21:37 | PN ---
DATE: 02/06/2019 SUBJECTIVE: The patient is sitting slightly propped up in bed, eating his lunch comfortably, in no apparent distress. On questioning him, he denied any complaint, in particular denied any chest pain, shortness of breath, orthopnea or paroxysmal nocturnal dyspnea. Denied any cough, phlegm or hemoptysis. He continues to be on a Cardizem drip, but his heart rate still not optimally controlled. He did receive digoxin and Multaq. He normally takes Diltiazem at night time. PHYSICAL EXAMINATION: GENERAL: When I examined him this afternoon, he looked well and was clearly in no apparent respiratory distress. No pallor, jaundice, cyanosis, or thyromegaly. No jugular venous distension. No limb edema. VITAL SIGNS: His heart rate was 115, blood pressure was 93/69, temperature was 98.6, respiratory rate 20, and oxygen saturation was 97% on room air. The rest of clinical exam is stable, has not really changed. PLAN: The patient has no lab work done today ____ 2 more sets of cardiac enzymes that ruled out myocardial infarction. He was seen in consultation by the Cardiology team and basically he is to continue on his Cardizem drip as he is scheduled to check his lipids and an echocardiogram and we will probably have a stress test as an outpatient. CARMELA MCGREGOR MD DR: ELVIS/chris JOB#: [id number] / [id number]
[2019-02-07 05:10] VITALS: BP 99/60
[2019-02-07 06:38] LABS: ALBUMIN 2.9 g/dL (3.4-5.0); ALBUMIN/GLOBULIN RATIO 0.9 (1.0-1.7); CALCIUM 8.1 mg/dL (8.5-10.1); POTASSIUM 3.8 mmol/L (3.5-5.1); TOTAL BILIRUBIN 0.5 mg/dL (0.2-1.0); TOTAL PROTEIN 6.3 g/dL (6.4-8.2)
[2019-02-07] MEDS: APIXABAN 5 MG TABLET. PO SCH (08:20)
[2019-02-07] MEDS: METOPROLOL TART IMMED RELEASE 50 MG TABLET PO SCH (08:20)
[2019-02-07] MEDS: ATORVASTATIN CALCIUM 10 MG TABLET. PO SCH (08:20)
[2019-02-07] MEDS: MAGNESIUM OXIDE 400 MG TABLET PO SCH (08:20)
[2019-02-07] MEDS: DRONEDARONE HCL 400 MG TABLET PO SCH (08:21)
--- NOTE | 2019-02-07 09:32 | PDOC ---
PROGRESS NOTES Diagnosis Problem Problems Medical Problems: (1) Atrial fibrillation with RVR Status: Acute (2) Chest pain Status: Acute Assessment Problems Medical Problems: (1) Atrial fibrillation with RVR Status: Acute (2) Chest pain Status: Acute 1. atrial fibrillation with RVR - back in sinus rhythm. continue current medications. 2. Chest pain - mi ruled out. LVEF wnl. lipids pending,plan for outpatient stress test. 3. hypertension - controlled 4. hyperlipidemia - continue statin 5. obesity - weight reduction encouraged. CV stable for discharge, outpatient stress test, follow up in 4 weeks Subjective "ready to go home", no chest pain, no dyspnea, no palpitations Objective Vital Signs Date Time Temp Pulse Resp B/P (MAP) Pulse Ox O2 Delivery O2 Flow Rate FiO2 02/07/19 08:21 62 02/07/19 05:10 97.6 21 99/60 (73) 97 BiPAP/CPAP 02/06/19 05:37 1.0 Intake and Output 02/07/19 07:00 Intake Total 1025 ml Output Total 700 ml Balance 325 ml Intake Oral 900 ml IV Total 125 ml Output Urine Total 700 ml # Voids 2 # Bowel Movements 1 Physical Exam General: Alert, Oriented X3, Cooperative, No acute distress Lungs: Clear to auscultation, Normal air movement Heart: regular rate and rhythm, no gallops, clicks or rubs, no obvious murmurs Abdomen: Normal bowel sounds, Soft, No tenderness, Other (obese) Extremities: No cyanosis, No edema, Normal pulses Review of Relevant I have reviewed the following items danish (where applicable) has been applied. Labs Laboratory Tests Test 02/05/19 18:56 02/05/19 23:15 02/05/19 23:30 02/06/19 02:40 White Blood Count 9.0 x10^3/uL (4.0-11.0) Red Blood Count 4.97 x10^6/uL (4.30-5.70) Hemoglobin 15.2 g/dL (13.0-17.5) Hematocrit 44.4 % (39.0-53.0) Mean Corpuscular Volume 89 fL (79-100) Mean Corpuscular Hemoglobin 31 pg (25-35) Mean Corpuscular Hemoglobin Concent 34 g/dL (31-37) Red Cell Distribution Width 13.1 % (11.5-14.5) Platelet Count 288 x10^3/uL (140-400) Neutrophils (%) (Auto) 61 % (31-73) Lymphocytes (%) (Auto) 25 % (24-48) Monocytes (%) (Auto) 9 % (0-9) Eosinophils (%) (Auto) 4 % (0-3) Basophils (%) (Auto) 1 % (0-3) Neutrophils # (Auto) 5.5 x10^3uL (1.8-7.7) Lymphocytes # (Auto) 2.3 x10^3/uL (1.0-4.8) Monocytes # (Auto) 0.8 x10^3/uL (0.0-1.1) Eosinophils # (Auto) 0.4 x10^3/uL (0.0-0.7) Basophils # (Auto) 0.1 x10^3/uL (0.0-0.2) Sodium Level 141 mmol/L (136-145) Potassium Level 3.7 mmol/L (3.5-5.1) Chloride Level 103 mmol/L (98-107) Carbon Dioxide Level 29 mmol/L (21-32) Anion Gap 9 (6-14) Blood Urea Nitrogen 18 mg/dL (8-26) Creatinine 1.0 mg/dL (0.7-1.3) Estimated GFR (Cockcroft-Gault) 77.0 BUN/Creatinine Ratio 18 (6-20) Glucose Level 121 mg/dL (70-99) Calcium Level 8.7 mg/dL (8.5-10.1) Magnesium Level 2.1 mg/dL (1.8-2.4) Total Bilirubin 0.3 mg/dL (0.2-1.0) Aspartate Amino Transf (AST/SGOT) 21 U/L (15-37) Alanine Aminotransferase (ALT/SGPT) 23 U/L (16-63) Alkaline Phosphatase 64 U/L (46-116) Troponin I Quantitative < 0.017 ng/mL (0-0.055) < 0.017 ng/mL (0-0.055) < 0.017 ng/mL (0-0.055) HR-Pof-F-Type Natriuretic Peptide 136 pg/mL (0-124) Total Protein 7.6 g/dL (6.4-8.2) Albumin 3.5 g/dL (3.4-5.0) Albumin/Globulin Ratio 0.9 (1.0-1.7) Nasal Screen MRSA (PCR) Negative (Negative) Triglycerides Level 59 mg/dL (0-150) Cholesterol Level 127 mg/dL (0-200) LDL Cholesterol, Calculated 77 mg/dL (0-100) VLDL Cholesterol, Calculated 11 mg/dL (0-40) Non-HDL Cholesterol Calculated 88 mg/dL (0-129) HDL Cholesterol 39 mg/dL (40-60) Cholesterol/HDL Ratio 3.0 Test 02/07/19 05:57 Sodium Level 141 mmol/L (136-145) Potassium Level 3.8 mmol/L (3.5-5.1) Chloride Level 105 mmol/L (98-107) Carbon Dioxide Level 32 mmol/L (21-32) Anion Gap 4 (6-14) Blood Urea Nitrogen 17 mg/dL (8-26) Creatinine 1.0 mg/dL (0.7-1.3) Estimated GFR (Cockcroft-Gault) 77.0 BUN/Creatinine Ratio 17 (6-20) Glucose Level 101 mg/dL (70-99) Calcium Level 8.1 mg/dL (8.5-10.1) Magnesium Level 2.0 mg/dL (1.8-2.4) Total Bilirubin 0.5 mg/dL (0.2-1.0) Aspartate Amino Transf (AST/SGOT) 15 U/L (15-37) Alanine Aminotransferase (ALT/SGPT) 18 U/L (16-63) Alkaline Phosphatase 50 U/L (46-116) Total Protein 6.3 g/dL (6.4-8.2) Albumin 2.9 g/dL (3.4-5.0) Albumin/Globulin Ratio 0.9 (1.0-1.7) Medications Current Medications Diltiazem HCl (Cardizem Iv Push) 20 mg 1X ONCE IVP Last administered on at 19:; Start 02/05/19 at 19:00; Stop 02/05/19 at 19:01; Status DC Sodium Chloride 1,000 ml @ 1,000 mls/hr Q1H IV Last administered on 02/05/19at :; Start 02/05/19 at 19:00; Stop 02/05/19 at 19:59; Status DC Nitroglycerin (Nitrostat) 0.4 mg PRN Q5MIN PRN SL CHEST PAIN; Start 02/05/19 at 20:45; Stop 02/06/19 at 20:44; Status DC Diltiazem HCl 125 mg/Dextrose 125 ml @ 5 mls/hr CONT PRN IV SEE I/O RECORD Last administered on 02/06/19at 06:30; Start 02/05/19 at 21:15 Dronedarone (Multaq) 200 mg BID PO Last administered on 02/06/19at 11:12; Start 02/06/19 at 10:30; Stop 02/06/19 at 16:42; Status DC Atorvastatin Calcium (Lipitor) 10 mg QHS PO ; Start 02/06/19 at 21:00; Stop at 21:00; Status DC Diltiazem HCl (Cardizem 24hr Cd) 180 mg DAILY PO ; Start 02/06/19 at 10:30; Stop 02/06/19 at 11:28; Status DC Magnesium Oxide (Magnesium Oxide) 200 mg BID PO Last administered on 02/07/19 08:20; Start 02/06/19 at 10:30 Metoprolol Tartrate (Lopressor) 50 mg BID PO Last administered on 02/07/19 08: 20; Start 02/06/19 at 10:30 Apixaban (Eliquis) 5 mg BID PO Last administered on 02/07/19 08:20; Start at 10:30 Aspirin (Aspirin Enteric Coated) 81 mg [id number] PO Last administered on at 12:02; Start 02/06/19 at 10:15; Stop 02/06/19 at 19:45; Status DC Atorvastatin Calcium (Lipitor) 10 mg DAILY PO Last administered on 02/07/19 08 :20; Start 02/06/19 at 10:30 Digoxin (Lanoxin) 500 mcg 1X ONCE IV Last administered on 02/06/19 12:02; Start 02/06/19 at 12:00; Stop 02/06/19 at 12:01; Status DC Diltiazem HCl (Cardizem 24hr Cd) 180 mg HS PO Last administered on 3/13/19at 21 :41; Start 02/06/19 at 21:00 Dronedarone (Multaq) 400 mg BID PO Last administered on 02/07/19at 08:21; Start 02/06/19 at 21:00 Active Scripts Active Eliquis (Apixaban) 5 Mg Tablet 5 Mg PO BID 90 Days Cardizem Cd (Diltiazem Hcl) 180 Mg Cap.er.24h 1 Cap PO DAILY Reported Atorvastatin Calcium 10 Mg Tablet 1 Tab PO DAILY Magnesium (Magnesium Oxide) 400 Mg Tablet 200 Mg PO BID Metoprolol Tartrate 50 Mg Tablet 1 Tab PO BID Multaq (Dronedarone Hcl) 400 Mg Tablet 400 Mg PO BID Vitals/I & O Vital Sign - Last 24 Hours 02/06/19 02/06/19 02/06/19 02/06/19 10:00 10:30 11:00 11:12 Pulse 122 128 101 Resp 18 18 B/P (MAP) 110/67 (81) 94/92 102/68 (79) Pulse Ox 98 97 O2 Delivery Room Air Room Air 02/06/19 02/06/19 02/06/19 02/06/19 12:02 12:15 12:21 12:45 Temp 98.6 Pulse 125 135 128 Resp 20 16 B/P (MAP) 93/69 (77) 87/61 (70) Pulse Ox 97 O2 Delivery Room Air 02/06/19 02/06/19 02/06/19 02/06/19 13:15 13:45 14:15 15:15 Pulse 76 62 58 56 Resp 18 16 18 16 B/P (MAP) 103/67 (79) 111/61 (78) 105/61 (76) 102/57 (72) 02/06/19 02/06/19 02/06/19 02/06/19 15:45 16:15 16:45 17:15 Pulse 56 54 56 62 Resp 18 B/P (MAP) 103/55 (71) 104/59 (74) 93/57 (69) 109/62 (78) 02/06/19 02/06/19 02/06/19 02/06/19 18:15 18:22 19:27 20:30 Temp 98.9 Pulse 66 64 64 Resp 14 B/P (MAP) 136/71 (92) 150/67 (94) Pulse Ox 98 O2 Delivery Room Air Room Air 02/06/19 02/06/19 02/06/19 02/06/19 21:30 21:30 21:41 23:48 Temp 98.8 Pulse 64 58 62 56 Resp 18 15 B/P (MAP) 106/61 106/61 (76) 106/61 99/58 (72) Pulse Ox 95 98 O2 Delivery Room Air BiPAP/CPAP 02/06/19 02/07/19 02/07/19 02/07/19 23:49 05:00 05:10 08:20 Temp 97.6 Pulse 60 64 Resp 21 B/P (MAP) 99/60 (73) Pulse Ox 97 O2 Delivery Room Air Room Air BiPAP/CPAP 02/07/19 08:21 Pulse 62 Intake and Output 02/06/19 02/06/19 02/07/19 15:00 23:00 07:00 Intake Total 660 ml 365 ml 0 ml Output Total 400 ml 300 ml Balance 260 ml 65 ml 0 ml LEONILA DOTY APRN Feb 07, 2019 09:32
--- NOTE | 2019-02-07 12:42 | EKG ---
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
--- NOTE | 2019-02-07 17:50 | DS ---
DATE OF DISCHARGE: 02/07/2019 HOSPITAL COURSE: The patient is sitting at the edge of the bed comfortably, in no apparent distress. He apparently has converted yesterday to sinus rhythm. We saw him this morning, he denied any complaint. PHYSICAL EXAMINATION: GENERAL: On examining him, he looked well and was clearly in no apparent respiratory distress. No pallor, jaundice, cyanosis, or thyromegaly. No jugular venous distension. No lower limb edema. VITAL SIGNS: His heart rate was 62, blood pressure was 99/60, temperature was 97.6, respiratory rate was 21 and oxygen saturation was 97% on room air. HEAD, EYES, EARS, NOSE, AND THROAT: Showed normocephalic, atraumatic. NECK: Supple. HEART: Showed normal first and second heart sounds. No gallop, rub or murmur. CHEST: Clear to auscultation. No crepitation or rhonchi. ABDOMEN: Distended, soft, nontender. NEUROLOGIC: He was awake, alert, responding appropriately. All cranial nerves intact. EXTREMITIES: He moves extremities without difficulty. He ambulates without assistance or assistive devices. LABORATORY DATA: Showed a white cell count 9000, hemoglobin 15, hematocrit 44, MCV 89 and platelet count 288,000. His chemistry this morning showed a serum sodium 141, potassium 3.8, chloride 105, bicarbonate 32, anion gap of 4, BUN 17, creatinine 1, estimated GFR was 77 mL per minute. His glucose 101, calcium was 8.1, and magnesium 2. Total bilirubin, AST, ALT, alkaline phosphatase were normal. His total protein was 6.3, albumin 2.9. Serum triglycerides were 59, total cholesterol 127, LDL cholesterol 77, VLDL was 11, and HDL cholesterol was 59, the ratio was 3. His TSH was ; 3 sets of cardiac enzyme, ruled out myocardial infarction. His nasal screen for MRSA PCR was negative. DISCHARGE MEDICATIONS: He was [facility] to [facility] to continue apixaban 5 mg twice a day, atorvastatin 10 mg at bedtime, diltiazem 180 mg daily, Multaq 400 mg twice a day, magnesium oxide 400 mg twice a day and metoprolol tartrate 50 mg twice a day. FINAL DISCHARGE DIAGNOSES: Atrial fibrillation with rapid ventricular response, converted while he was on a Cardizem drip. Other medical problems include chest pain with myocardial infarction ruled out. He has 3 sets of cardiac enzymes, which were negative. Hypertension, hyperlipidemia, morbid obesity, obstructive sleep apnea. CARMELA MCGREGOR MD DR: ELVIS/chris JOB#: [id number] / [id number]
== END 2019-02-07 11:45 | disposition home or self-care (01) | DRG 309 ==
LOC: ER 18:34 → ICU 20:34
PROVIDERS: ADMIT Internal Medicine; ATTEND Internal Medicine
PROC: 5A09357 Assistance with Respiratory Ventilation, Less than 24 Consecutive Hours, Continuous Positive Airway Pressure (ICD-10-PCS; principal; 2019-02-06)
PROC: 5A09357 Assistance with Respiratory Ventilation, Less than 24 Consecutive Hours, Continuous Positive Airway Pressure (ICD-10-PCS; 2019-02-07)
DX: I48.2 Chronic atrial fibrillation (principal); Z68.41 Body mass index [BMI] 40.0-44.9, adult; J44.9 Chronic obstructive pulmonary disease, unspecified; I10 Essential (primary) hypertension; G47.33 Obstructive sleep apnea (adult) (pediatric); E66.01 Morbid (severe) obesity due to excess calories; K21.9 Gastro-esophageal reflux disease without esophagitis; I95.9 Hypotension, unspecified; E78.5 Hyperlipidemia, unspecified; Z79.01 Long term (current) use of anticoagulants; Z88.1 Allergy status to other antibiotic agents; Z79.899 Other long term (current) drug therapy; Z82.49 Family history of ischemic heart disease and other diseases of the circulatory system; Z87.891 Personal history of nicotine dependence
CPT/HCPCS: 36415; 71045; 80053; 80061; 83735; 83880; 84443; 84484; 85025; 87641; 93005; 93306; 96361; 96365; 96366; 96375; J1160; J3490; 99285-25; J7030

== ENCOUNTER 2019-02-17 18:49 | Inpatient (IN) | payer OTHER ==
[~2019-02-17] VITALS: Ht 167.6 cm; Wt 118.8 kg
[~2019-02-17 18:49] MED LIST changes: +ATOR10TA60 PO; +DRON400T PO; +MAGN400T30 PO; +METO50TA6 PO
--- NOTE | 2019-02-17 19:06 | EKG ---
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
[2019-02-17] MEDS ORDERED: dilTIAZem VIAL 125 MG in IV DEXTROSE 5% 100 ML IV ONE ×2 (19:15→20:15)
[2019-02-17] MEDS ORDERED: IV DEXTROSE 5% 100 ML IV ONE ×2 (19:28→19:41)
[2019-02-17 19:29] LABS: BASO % 0 % (0-3); EOS # 0.2 x10^3/uL (0.0-0.7); EOS % 3 % (0-3); HEMATOCRIT 43.7 % (39.0-53.0); HEMOGLOBIN 14.9 g/dL (13.0-17.5); LYMPH # 2.2 x10^3/uL (1.0-4.8); LYMPH % 26 % (24-48); MEAN CORPUSCULAR HEMOGLOBIN 30 pg (25-35); MEAN CORPUSCULAR HGB CONC 34 g/dL (31-37); MEAN CORPUSCULAR VOLUME 89 fL (79-100); MONO # 0.6 x10^3/uL (0.0-1.1); MONO % 7 % (0-9); NEUT # 5.5 x10^3uL (1.8-7.7); NEUT % 65 % (31-73); PLATELET COUNT 284 x10^3/uL (140-400); RED BLOOD COUNT 4.91 x10^6/uL (4.30-5.70); RED CELL DISTRIBUTION WIDTH 12.7 % (11.5-14.5); WHITE BLOOD COUNT 8.5 x10^3/uL (4.0-11.0)
--- NOTE | 2019-02-17 19:40 | PHYS DOC ---
Past History Past Medical History: A-Fib, Hypertension Past Surgical History: No Surgical History Alcohol Use: None Drug Use: None Adult General Chief Complaint Chief Complaint: Palpitations HPI HPI Patient is a 58 yo male with PMH of A-Fib with recent admission to [facility] on for A-Fib with RVR, presents to the ED today with heart palpitations and increased SOB. Pt reports doing yard work all week, including this morning. Began feeling palpitations at rest after returning from the yard. He denies any syncope or light-headedness. Pt also reports increased chest pressure that he describes as dull and mild. He denies any radiation in chest pain to his extremities or neck. Pt took a dose of his Cardizem and Eliquis shortly before coming to the ED. He denies any nausea, vomiting, diarrhea, fever or chills. Review of Systems Review of Systems Constitutional: Denies fever or chills [] Eyes: Denies change in visual acuity, redness, or eye pain [] HENT: Denies nasal congestion or sore throat [] Respiratory: Reports SOB, no cough. Cardiovascular: dull chest pressure, no pain. palpitations. GI: Denies abdominal pain, nausea, vomiting, bloody stools or diarrhea [] : Denies dysuria or hematuria [] Musculoskeletal: Denies back pain or joint pain [] Integument: Denies rash or skin lesions [] Neurologic: Denies headache, focal weakness or sensory changes [] Complete systems were reviewed and found to be within normal limits, except as documented in this note. Current Medications Current Medications Current Medications Medications (Trade) Dose Ordered Sig/Otf Start Time Stop Time Status Last Admin Dose Admin Dextrose 100 ml @ As Directed STK-MED ONCE 02/17/19 19:28 02/17/19 19:29 DC Diltiazem HCl (Cardizem Iv Push) 20 mg 1X ONCE 02/17/19 19:45 02/17/19 19:46 02/17/19 19:31 20 MG Diltiazem HCl 125 mg/Dextrose 125 ml @ 10 mls/hr 1X ONCE 02/17/19 19:15 02/18/19 07:44 Allergies Allergies Allergies Coded Allergies Type Severity Reaction Last Updated Verified doxycycline Allergy Severe 02/06/19 Yes Physical Exam Physical Exam Constitutional: Well developed, well nourished, no acute distress, non-toxic appearance. [] HENT: Normocephalic, atraumatic, oropharynx moist Eyes: Conjunctiva normal, no discharge. [] Neck: Normal range of motion, supple Cardiovascular: Tachycardic, no murmur [] Lungs & Thorax: Bilateral breath sounds clear to auscultation [] Abdomen: no tenderness, soft, nontender umbilical hernia Skin: Warm, dry, no erythema, no rash. [] Extremities: ROM intact Neurologic: Alert and oriented X 3, speech normal Psychologic: Affect normal, judgement normal, mood normal. [] Current Patient Data Vital Signs Vital Signs Date Time Temp Pulse Resp B/P (MAP) Pulse Ox O2 Delivery O2 Flow Rate FiO2 02/17/19 19:31 116 110/77 EKG EKG @1900 Afib RVR at 132bpm, no ST elevation with occasional PVC, [facility] which appears similar as at that time also Afib RVR at 130bpm Radiology/Procedures Radiology/Procedures PROCEDURE: CHEST PA & LATERAL Chest radiograph 02/17/2019 7:17 PM INDICATION: Chest pain, shortness of breath COMPARISON: February 05, 2019 TECHNIQUE: Frontal and lateral views of the chest are provided. FINDINGS: The cardiomediastinal silhouette is within normal limits. There are no pleural effusions. There is no pulmonary vascular congestion. There is no pneumothorax. The lungs are clear. Mild bronchial wall thickening is noted in the lower lobes. No significant osseous abnormality is identified. IMPRESSION: Bronchial wall thickening is suggestive of bronchitis. Electronically signed by: Gricelda Munoz MD (02/17/2019 7:37 PM) [facility] Course & Med Decision Making Course & Med Decision Making Mr. Abreu is a 58 yo male who presented to the ED with Heart palpitations and SOB. He was found to be in A-Fib with RVR, confirmed by ECG. CXR showed increased lung markings, but no lobar pneumonia or effusions. Pt was given a 20mg bolus of Cardizem and subsequently started on a Cardizem drip @ 5mL/hour. Pt administered 40mg one time dose of KCl for hypokalemia. Aspirin 325mg one time dose also given. Pt admitted to hospital for continued cardiac monitoring. Patient requiring admission for further evaluation and treatment. Discussed with Dr. Hernandez (hospitalist) who is in agreement with admission. Discussed findings and plan with patient, who acknowledges understanding and agreement. Dragon Disclaimer Dragon Disclaimer This electronic medical record was generated, in whole or in part, using a voice recognition dictation system. Departure Departure: Impression: Primary Impression: Atrial fibrillation with RVR Additional Impression: Hypokalemia Disposition: ADMITTED INPATIENT Admitting Physician: Anna Hernandez Condition: IMPROVED Referrals: PCP,NO (PCP) Critical Care Time Critical care time was 30 minutes which includes time at bedside, spent in discussion of patient's care with specialists and/or family members, with interpretation of laboratory and/or radiological studies and is exclusive of procedures. Problem Qualifiers MARYLOU MAXWELL DO Feb 17, 2019 19:40
[2019-02-17] MEDS ORDERED: dilTIAZem 25 MG/5 ML VIAL IVP ONE (19:45)
[2019-02-17 19:51] LABS: ALBUMIN 3.7 g/dL (3.4-5.0); ALBUMIN/GLOBULIN RATIO 0.9 (1.0-1.7); MAGNESIUM 1.8 mg/dL (1.8-2.4); POTASSIUM 3.1 mmol/L (3.5-5.1); TOTAL BILIRUBIN 0.3 mg/dL (0.2-1.0); TOTAL PROTEIN 7.9 g/dL (6.4-8.2)
[2019-02-17 20:03] LABS: BILIRUBIN,URINE NEG (NEG); CLARITY,URINE CLEAR; COLOR,URINE STRAW; GLUCOSE,URINE NEG (NEG)
[2019-02-17 20:04] LABS: BACTERIA,URINE 0 /HPF (0-FEW); NITRITE,URINE NEG (NEG); RBC,URINE 0 /HPF (0-2); SQUAMOUS EPITHELIAL CELL,UR OCC /LPF; UROBILINOGEN,URINE 0.2 mg/dL (0.2 mg/dL); WBC,URINE 0 /HPF (0-4)
[2019-02-17] MEDS ORDERED: ASPIRIN 325 MG TABLET PO ONE (20:30)
[2019-02-17] MEDS ORDERED: POTASSIUM CHLORIDE 20 MEQ TABLET.ER. PO ONE (21:00)
[2019-02-17 22:15] VITALS: BP 109/67
[2019-02-17 23:03] VITALS: BP 93/57
[2019-02-18] VITALS (14 sets, daily range): BP systolic 83–107; BP diastolic 55–74
[2019-02-18] MEDS ORDERED: APIXABAN 5 MG TABLET. PO SCH (09:30)
--- NOTE | 2019-02-18 09:43 | PDOC2 ---
CONSULT Date of Admission DATE: 02/18/19 TIME: 09:41 Reason for Consult: atrial fibrillation with RVR Problem List Problems Medical Problems: (1) Atrial fibrillation with RVR Status: Acute (2) Hypokalemia Status: Acute History of Present Illness Mr Abreu is a 58 year old male who was recently discharged after admission for atrial fibrillation with RVR. He has a history of atrial fibrillation, hypertension and hyperlipidemia. He was admitted and treated with cardizem drip , then resumed on oral medications and discharged with plan for MCT and outpatient stress testing. Yesterday he reports that he spent the day doing yard work at his brothers house and feels that he "over did it". He came back to ED and was again found to be in atrial fibrillation with RVR. He is currently on cardizem drip with fairly well controlled rate. He remains in atrial fibrillation. He denies chest discomfort, lightheadedness or dyspnea exceeding his baseline due to COPD. He continues to report that his atrial fibrillation is normally fairly well controlled with breakthrough only once or twice per year with the last few months occurring more often than usual. He denies other episodes of chest discomfort. He reports chronic dyspnea due to his COPD but denies any recent exacerbations. He denies congestive symptoms, lightheadedness, presyncope or syncope. He denies functional limitations. Past Medical History Cardiovascular: AFIB, HTN, hyperipidemia Pulmonary: COPD, Other (OAS) GI: GERD Renal/: Other (urinary retention, prob BPH by history) Echo 02/06/19 The left ventricular systolic function is normal. The Ejection Fraction is 55-60%. There is normal LV segmental wall motion. Trace to mild tricuspid regurgitation. The PA pressure was estimated at 32 mmHg. There is no evidence of significant pericardial effusion. Past Surgical History no surgeries Family History father - onset in his 50s, CAD, HTN, alcoholism Social History prior history of methamphetamine use, last in 2011, prior smoking last in 2011, no significant ETOH, resides in senior living house since release from care home. Current Medications Current Medications Diltiazem HCl (Cardizem Iv Push) 20 mg 1X ONCE IVP Last administered on at 19:31; Start 02/17/19 at 19:45; Stop 02/17/19 at 19:46; Status DC Diltiazem HCl 125 mg/Dextrose 125 ml @ 10 mls/hr 1X ONCE IV ; Start 02/17/19 at 19:15; Stop 02/17/19 at 20:08; Status DC Dextrose 100 ml @ As Directed STK-MED ONCE IV ; Start 02/17/19 at 19:28; Stop 02/17/19 at 19:29; Status DC Dextrose 100 ml @ As Directed STK-MED ONCE IV ; Start 02/17/19 at 19:41; Stop 02/17/19 at 19:42; Status DC Diltiazem HCl (Cardizem) 125 mg STK-MED ONCE IV ; Start 02/17/19 at 19:42; Stop 02/17/19 at 19:43; Status DC Aspirin (Bubba Aspirin) 325 mg 1X ONCE PO Last administered on 02/17/19at 20:02 ; Start 02/17/19 at 20:30; Stop 02/17/19 at 20:31; Status DC Diltiazem HCl 125 mg/Dextrose 125 ml @ 5 mls/hr 1X ONCE IV Last administered on 02/17/19at 22:15; Start 02/17/19 at 20:15; Stop 02/18/19 at 21:14 Potassium Chloride (Klor-Con) 40 meq 1X ONCE PO Last administered on at 20:26; Start 02/17/19 at 21:00; Stop 02/17/19 at 21:01; Status DC Apixaban (Eliquis) 5 mg BID PO Last administered on 02/18/19at 09:22; Start at 09:30 Active Scripts Active Eliquis (Apixaban) 5 Mg Tablet 5 Mg PO BID 90 Days Cardizem Cd (Diltiazem Hcl) 180 Mg Cap.er.24h 1 Cap PO DAILY Reported Atorvastatin Calcium 10 Mg Tablet 1 Tab PO DAILY Magnesium (Magnesium Oxide) 400 Mg Tablet 200 Mg PO BID Metoprolol Tartrate 50 Mg Tablet 1 Tab PO BID Multaq (Dronedarone Hcl) 400 Mg Tablet 400 Mg PO BID Allergies: Coded Allergies: doxycycline (Verified Allergy, Severe, 02/06/19) Pt states "my skin breaks out into red itchy patches - not hives." Review of System as per HPI, otherwise negative General: Alert, Oriented X3, Cooperative, No acute distress HEENT: Atraumatic, EOMI Lungs: Clear to auscultation Heart: Other (irr, no gallops, clicks or rubs, no obvious murmurs) Abdomen: Normal bowel sounds, Soft, No tenderness Extremities: No cyanosis, No edema, Normal pulses Neuro: Normal speech, Strength at 5/5 X4 ext Psych/Mental Status: Mental status NL, Mood NL VITALS Vital Signs Date Time Temp Pulse Resp B/P (MAP) Pulse Ox O2 Delivery O2 Flow Rate FiO2 02/18/19 09:00 98 23 100/74 (83) 97 Room Air 02/18/19 07:43 98.2 Labs Laboratory Tests Test 02/17/19 18:55 02/17/19 19:05 02/17/19 22:37 02/18/19 02:00 Urine Collection Type Unknown Urine Color Straw Urine Clarity Clear Urine pH 5.5 Urine Specific [place] 1.010 Urine Protein Neg (NEG-TRACE) Urine Glucose (UA) Neg mg/dL (NEG) Urine Ketones (Stick) Neg mg/dL (NEG) Urine Blood Trace (NEG) Urine Nitrite Neg (NEG) Urine Bilirubin Neg (NEG) Urine Urobilinogen Dipstick 0.2 mg/dL (0.2 mg/dL) Urine Leukocyte Esterase Neg (NEG) Urine RBC 0 /HPF (0-2) Urine WBC 0 /HPF (0-4) Urine Squamous Epithelial Cells Occ /LPF Urine Bacteria 0 /HPF (0-FEW) White Blood Count 8.5 x10^3/uL (4.0-11.0) Red Blood Count 4.91 x10^6/uL (4.30-5.70) Hemoglobin 14.9 g/dL (13.0-17.5) Hematocrit 43.7 % (39.0-53.0) Mean Corpuscular Volume 89 fL (79-100) Mean Corpuscular Hemoglobin 30 pg (25-35) Mean Corpuscular Hemoglobin Concent 34 g/dL (31-37) Red Cell Distribution Width 12.7 % (11.5-14.5) Platelet Count 284 x10^3/uL (140-400) Neutrophils (%) (Auto) 65 % (31-73) Lymphocytes (%) (Auto) 26 % (24-48) Monocytes (%) (Auto) 7 % (0-9) Eosinophils (%) (Auto) 3 % (0-3) Basophils (%) (Auto) 0 % (0-3) Neutrophils # (Auto) 5.5 x10^3uL (1.8-7.7) Lymphocytes # (Auto) 2.2 x10^3/uL (1.0-4.8) Monocytes # (Auto) 0.6 x10^3/uL (0.0-1.1) Eosinophils # (Auto) 0.2 x10^3/uL (0.0-0.7) Basophils # (Auto) 0.0 x10^3/uL (0.0-0.2) Prothrombin Time 10.4 SEC (9.4-11.4) Prothromb Time International Ratio 1.0 (0.9-1.1) Activated Partial Thromboplast Time 29 SEC (23-33) Sodium Level 142 mmol/L (136-145) Potassium Level 3.1 mmol/L (3.5-5.1) Chloride Level 104 mmol/L (98-107) Carbon Dioxide Level 28 mmol/L (21-32) Anion Gap 10 (6-14) Blood Urea Nitrogen 22 mg/dL (8-26) Creatinine 1.0 mg/dL (0.7-1.3) Estimated GFR (Cockcroft-Gault) 77.0 BUN/Creatinine Ratio 22 (6-20) Glucose Level 135 mg/dL (70-99) Calcium Level 9.0 mg/dL (8.5-10.1) Magnesium Level 1.8 mg/dL (1.8-2.4) Total Bilirubin 0.3 mg/dL (0.2-1.0) Aspartate Amino Transf (AST/SGOT) 20 U/L (15-37) Alanine Aminotransferase (ALT/SGPT) 23 U/L (16-63) Alkaline Phosphatase 69 U/L (46-116) Creatine Kinase 178 U/L (39-308) Creatine Kinase MB (Mass) 1.2 ng/mL (0.0-3.6) Creatine Kinase MB Relative Index 0.7 % (0-4) Troponin I Quantitative < 0.017 ng/mL (0-0.055) < 0.017 ng/mL (0-0.055) < 0.017 ng/mL (0-0.055) JT-Oyn-Q-Type Natriuretic Peptide 137 pg/mL (0-124) Total Protein 7.9 g/dL (6.4-8.2) Albumin 3.7 g/dL (3.4-5.0) Albumin/Globulin Ratio 0.9 (1.0-1.7) Lipase 178 U/L (73-393) Images EKG - atrial fibrillation with rapid ventricular response, non specific st/t changes CXR - IMPRESSION: Bronchial wall thickening is suggestive of bronchitis. Assessment/Plan 1. atrial fibrillation with RVR - resume cardizem, Eliquis and metoprolol as at home. Will stop Multaq and start Amiodarone. will add digoxin if needed for rate control. Plan for EP evaluation as outpatient. . 2. hypertension - blood pressures have been low normal to mildly hypotensive and remains stable. No change at this time. 4. hyperlipidemia - continue statin. 5. obesity - weight reduction encouraged. LEONILA DOTY APRN Feb 18, 2019 09:43
[2019-02-18] MEDS ORDERED: ATORVASTATIN CALCIUM 10 MG TABLET. PO SCH (10:00)
[2019-02-18] MEDS ORDERED: METOPROLOL TART IMMED RELEASE 50 MG TABLET PO SCH (10:00)
[2019-02-18] MEDS ORDERED: MAGNESIUM OXIDE 400 MG TABLET PO SCH (10:00)
[2019-02-18] MEDS ORDERED: AMIODARONE HCL 200 MG TABLET PO SCH (10:00)
[2019-02-18 10:11] LABS: CALCIUM 8.8 mg/dL (8.5-10.1); POTASSIUM 3.8 mmol/L (3.5-5.1)
--- NOTE | 2019-02-18 12:11 | HP ---
ADMIT DATE: 02/17/2019 HISTORY OF PRESENT ILLNESS: The patient is a 58-year-old male patient who was discharged recently from this hospital then an episode of atrial fibrillation with rapid ventricular response presented to the Emergency Room again with heart palpitations, increasing shortness of breath. He stated that he was doing some yard work with his brother the morning on the day of admission and he began feeling palpitations at rest after returning from the yard. He denied any syncope or lightheadedness. Did report increased chest pressure, which he describes as dull and mild. He denied any radiation of the chest pain to his extremities or neck. He took his medication before coming to the Emergency Room. He denied any nausea, vomiting, diarrhea, fever or chills. On arrival, she was found to be in atrial fibrillation with rapid ventricular response with a heart rate of 132 beats per minute, no ST-T changes, with occasional premature ventricular contraction. He apparently was started on Cardizem drip after receiving 20 mg loading dose and was admitted to the ICU for further evaluation and treatment and to consult the cardiology team. His first set of cardiac enzyme showed the troponin to be less than 0.017. We will do 2 more sets of cardiac enzyme and obviously consult the cardiology team for adjustment of his medication. PAST MEDICAL HISTORY: Significant for atrial fibrillation, hypertension, hyperlipidemia, chronic obstructive pulmonary disease. He is also known to have morbid obesity with obstructive sleep apnea, on CPAP. PAST SURGICAL HISTORY: Significant for colonoscopy with 6 polypectomies. ALLERGIES: He is allergic to DOXYCYCLINE. MEDICATIONS: He was discharged on the following medications: Apixaban 5 mg twice a day, atorvastatin 10 mg at bedtime, diltiazem 180 mg once a day, Multaq 400 mg twice a day, magnesium oxide 400 mg twice a day and metoprolol tartrate 50 mg twice a day. FAMILY HISTORY: He has 1 brother younger, 1 sister younger and 1 sister older. His brother has what seems to be coronary artery disease and extensive calcification of his coronary arteries. His father at the age of 54 because of myocardial infarction. His mother at the age of 84; however, the cause of is unknown to him. SOCIAL HISTORY: He is , has 3 sons. He quit smoking in 2011 as well as using drugs. He used to smoke 2 packs a day and smoked for 35 years. He also used to smoke methamphetamine daily for almost 15 years. He drinks alcohol occasionally. 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 REVIEW OF SYSTEMS: As per history of present illness. PHYSICAL EXAMINATION: GENERAL: On arrival to the Emergency Room, he apparently was slightly tachypneic, but there is no pallor, jaundice, cyanosis, or thyromegaly. No jugular venous distention. No limb edema. VITAL SIGNS: His heart rate was 126, blood pressure was 110/77, temperature was 97.8, respiratory rate 20, and oxygen saturation was 97% on room air. HEAD, EYES, EARS, NOSE, AND THROAT: Showed normocephalic, atraumatic. NECK: Supple. HEART: Showed normal first and second heart sounds. No gallop, rub or murmur. CHEST: Clear to auscultation. No crepitation or rhonchi. ABDOMEN: Distended, soft, nontender. No guarding or rigidity. No organomegaly. All hernial orifices intact. Bowel sounds normal. NEUROLOGIC: He was awake, alert, responding appropriately. All cranial nerves intact. He moves extremities without difficulty. He ambulates without assistance or assistive devices. LABORATORY DATA: His lab work showed a serum sodium 142, potassium 3.1, chloride 104, bicarbonate 28, anion gap of 10, BUN 22, creatinine 1, estimated GFR was 77 mL per minute, his glucose was 135, calcium was 9, magnesium was 1.8. Total bilirubin, AST, ALT, alkaline phosphatase were normal. Total protein was 7.9, albumin was 3.7, lipase 178. Troponin I was less than 0.017. His white cell count was 8,500, hemoglobin 14.9, hematocrit 44, MCV 89 and platelet count of 284,000. His prothrombin time was 10.4, INR of 1, aPTT was 29. Urinalysis was essentially unremarkable. His chest x-ray showed that the cardiomediastinal silhouette is within normal limits. There are no pleural effusions. There is no pulmonary vascular congestion. There is no pneumothorax. The lungs are clear. Mild bronchial wall thickening is noted in the lower lobes. No significant osseous abnormalities identified. His EKG showed that he was in atrial fibrillation with rapid ventricular response, but there were no ST-T changes. He has occasional premature ventricular contractions. ASSESSMENT AND PLAN: In summary, this is a 58-year-old old male patient who yet again came with another episode of atrial fibrillation with rapid ventricular response. We will consult the application processor. We will do 2 more sets of cardiac enzyme and continue with Kathrin garcia. Continue with all his other medications. CARMELA MCGREGOR MD DR: ELVIS/chris JOB#: [id number] / [id number]
[2019-02-18] MEDS ORDERED: AMIO200T4 PO ×2 (15:13)
--- NOTE | 2019-02-19 00:04 | PN ---
DATE: 02/18/2019 SUBJECTIVE: The patient was admitted yesterday with another episode of atrial fibrillation with rapid ventricular response for which he received the loading dose of Cardizem and started on a Cardizem drip. His potassium was low also at 3.1, so was given 40 mEq of potassium and was admitted to the ICU, continued all his other medications. We did consult the cardiology team and apparently he was seen this morning and his Multaq was switched to amiodarone at 400 mg twice a day. By the time I saw him, his Cardizem drip was discontinued, his heart rate is much better controlled and when I questioned him, he denied any chest pain or shortness of breath. OBJECTIVE: GENERAL: When I examined him, he looked well and was clearly in no apparent respiratory distress. No pallor, jaundice, cyanosis, or thyromegaly. No jugular venous distension. No limb edema. VITAL SIGNS: His heart rate was 80, blood pressure was 100/74, temperature was 98.2, respiratory rate was 16, and oxygen saturation was 98%. HEAD, EYES, EARS, NOSE AND THROAT: Normocephalic, atraumatic. NECK: Supple. HEART: Showed normal first and second sounds. No gallop or murmur. CHEST: Clear to auscultation. No crepitation or rhonchi. ABDOMEN: Distended, soft, nontender. NEUROLOGIC: He was awake, alert, responding appropriately. All cranial nerves intact. He moves extremities without difficulty. He normally ambulates without assistance or assistive devices. His intake was 900, output was 500. LABORATORY DATA: This morning showed a serum sodium is 143, potassium 3.8, chloride 105, bicarbonate 31, anion gap of 7, BUN 19, creatinine 1, estimated GFR was 77 mL per minute, his glucose 108, calcium was 8.8. Two more sets of cardiac enzymes showed troponin to be less than 0.017 ruling out myocardial infarction. ASSESSMENT: 1. Atrial fibrillation with rapid ventricular response, rate controlled. He is now on amiodarone 400 mg twice a day together with metoprolol and diltiazem. He is also on apixaban for stroke prevention. 2. Hyperlipidemia, for which he is on atorvastatin. 3. Morbid obesity, obstructive sleep apnea for which he is on CPAP. CARMELA MCGREGOR MD DR: Johnna JOB#: [id number] / [id number]
== END 2019-02-18 16:06 | DRG 309 ==
LOC: ER 18:49 → ICU 20:00
PROVIDERS: ADMIT Internal Medicine; ATTEND Internal Medicine
PROC: 5A09357 Assistance with Respiratory Ventilation, Less than 24 Consecutive Hours, Continuous Positive Airway Pressure (ICD-10-PCS; principal; 2019-02-18)
DX: I48.91 Unspecified atrial fibrillation (principal); Z68.41 Body mass index [BMI] 40.0-44.9, adult; E66.01 Morbid (severe) obesity due to excess calories; E78.5 Hyperlipidemia, unspecified; E87.6 Hypokalemia; F15.90 Other stimulant use, unspecified, uncomplicated; G47.33 Obstructive sleep apnea (adult) (pediatric); I10 Essential (primary) hypertension; J44.9 Chronic obstructive pulmonary disease, unspecified; K21.9 Gastro-esophageal reflux disease without esophagitis; Z79.899 Other long term (current) drug therapy; Z82.49 Family history of ischemic heart disease and other diseases of the circulatory system; Z87.891 Personal history of nicotine dependence; I95.9 Hypotension, unspecified; Z88.8 Allergy status to other drugs, medicaments and biological substances; Z81.1 Family history of alcohol abuse and dependence
CPT/HCPCS: 36415; 71046; 80048; 80053; 81001; 82553; 83690; 83735; 83880; 84484; 85025; 85610; 85730; 93005; 96374; J3490; 99291-25